=== PATIENT | female | born 1990 | race African-American/Black ===

== ENCOUNTER → 2016-11-20 | Outpatient (CLI) | payer OTHER | LOC: COL.RAD 09:00 | DX: E34.50 Androgen insensitivity syndrome, unspecified (principal); Z90.710 Acquired absence of both cervix and uterus | CPT/HCPCS: A9585 ==

== ENCOUNTER → 2019-01-06 | Outpatient (CLI) | payer OTHER | LOC: COL.RAD 10:30 | DX: E34.50 Androgen insensitivity syndrome, unspecified (principal); Z87.42 Personal history of other diseases of the female genital tract; Z90.710 Acquired absence of both cervix and uterus; Z90.721 Acquired absence of ovaries, unilateral ==